=== PATIENT | male | born 1940 | race Caucasian/White ===

== ENCOUNTER 2022-12-30 23:01 | Emergency (ER) | payer MEDICAID, MEDICARE ==
[~2022-12-30] VITALS: Ht 177.8 cm; Wt 81.8 kg
[2022-12-30 23:57] VITALS: BP 213/73
[2022-12-31] MEDS ORDERED: HYDR25TA5 PO (00:18)
== END 2022-12-31 07:02 | disposition home or self-care (01) ==
LOC: ER 23:02
DX: I10 Essential (primary) hypertension (principal); R60.0 Localized edema; Z79.899 Other long term (current) drug therapy
CPT/HCPCS: 99283